=== PATIENT | male | born 1975 | race Caucasian/White ===

== ENCOUNTER 2018-03-04 04:28 | Inpatient (IN) | payer SELFPAY ==
[~2018-03-04] VITALS: Ht 177.8 cm; Wt 97.5 kg
[2018-03-04 04:39] VITALS: Ht 177.8 cm; Wt 97.5 kg
[2018-03-04 04:58] LABS: BASOPHIL % 0.4 % (0-2); PLATELET COUNT 236 x10^3mcL (130-400); RED CELL DISTRIBUTION WIDTH 12.9 % (11.5-14.5)
[2018-03-04 05:06] LABS: CALCIUM 8.6 mg/dL (8.5-10.1); CARBON DIOXIDE 24.8 mmol/L (21-32); CHLORIDE SERUM 104 mmol/L (98-107); CREATININE SERUM 0.8 mg/dL (0.7-1.3); GFR1 > 60 mL/min; GLUCOSE SERUM 129 mg/dL (74-106); POTASSIUM SERUM 3.8 mmol/L (3.5-5.1); SODIUM SERUM 137 mmol/L (136-145)
[2018-03-04 05:11] LABS: ALBUMIN 3.7 g/dL (3.4-5.0); ALKALINE PHOSPHATASE 68 U/L (46-116); ALT/SGPT 47 U/L (16-63); AST/SGOT 28 U/L (15-37); BILIRUBIN TOTAL 0.7 mg/dL (0.20-1.00); TOTAL PROTEIN, SERUM 7.1 g/dL (6.4-8.2)
[2018-03-04 05:56] LABS: AMPHETAMINE QUAL UR NONE DETECTED (NEG <=1000)
[2018-03-04 07:27] LABS: T3 TOTAL 1.18 ng/mL
[2018-03-04 08:04] VITALS: BP 150/89
[2018-03-04 08:09] LABS: microscopic required? YES; urine erythrocyte NEGATIVE (NEGATIVE)
[2018-03-04 08:24] LABS: MAGNESIUM 1.9 mg/dL (1.8-2.4); PHOSPHOROUS 2.3 mg/dL (2.5-4.9)
[2018-03-04 08:28] LABS: CHOLESTEROL/HDL RATIO 5.3
[2018-03-04 08:29] LABS: FREE T4 1.05 ng/dL (0.76-1.46); FREE THYROXINE INDEX 2.6 ug/dL (1.4-4.5); T4(THYROXINE) 7.5 ug/dL (4.7-13.3)
[2018-03-04 13:16] VITALS: BP 129/75
[2018-03-04 18:00] VITALS: BP 138/84
[2018-03-04 20:55] VITALS: BP 107/59
[2018-03-05 04:58] VITALS: BP 106/62
[2018-03-05 06:38] LABS: BASOPHIL % 0.4 % (0-2); PLATELET COUNT 211 x10^3mcL (130-400); RED CELL DISTRIBUTION WIDTH 13.6 % (11.5-14.5)
[2018-03-05 06:45] LABS: CALCIUM 8.6 mg/dL (8.5-10.1); CARBON DIOXIDE 29.7 mmol/L (21-32); CHLORIDE SERUM 109 mmol/L (98-107); CREATININE SERUM 0.8 mg/dL (0.7-1.3); GFR1 > 60 mL/min; GLUCOSE SERUM 90 mg/dL (74-106); POTASSIUM SERUM 4.3 mmol/L (3.5-5.1); SODIUM SERUM 142 mmol/L (136-145)
[2018-03-05 08:56] VITALS: BP 124/68
[2018-03-05 12:32] VITALS: BP 132/78
[2018-03-05 12:46] VITALS: BP 132/78
== END 2018-03-05 13:58 | disposition home or self-care (01) | DRG 205 ==
LOC: ED 04:28 → DU 06:26
PROVIDERS: Emergency Medicine; Family Medicine
DX: M94.0 Chondrocostal junction syndrome [Tietze] (principal); N17.0 Acute kidney failure with tubular necrosis; I67.4 Hypertensive encephalopathy; E78.5 Hyperlipidemia, unspecified; Z53.29 Procedure and treatment not carried out because of patient's decision for other reasons; E83.39 Other disorders of phosphorus metabolism
CPT/HCPCS: 82962; 83880; 84439; G0480; J1644; J7030; Q0092